=== PATIENT | male | born 1975 | race Caucasian/White ===

== ENCOUNTER 2019-03-07 18:43 | Emergency (ER) | payer SELFPAY ==
[~2019-03-07] VITALS: Ht 157.5 cm; Wt 74.4 kg
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
[2019-03-07] MEDS ORDERED: TETANUS,DIPTH,PERTUSS P/F (BOOSTRIX) 0.5 ML VIAL IM ONE (19:00)
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
--- NOTE | 2019-03-07 19:38 | NUR ---
C-collar cleared by Camron Felix APRN @ this time.
[2019-03-07 19:47] VITALS: BP 139/89
--- NOTE | 2019-03-07 19:47 | NUR ---
@ time of d/c from ED pt voices no further questions or concerns.
== END 2019-03-07 19:50 | disposition home or self-care (01) ==
LOC: ER 18:44
DX: S01.01XA Laceration without foreign body of scalp, initial encounter (principal); R40.2142 Coma scale, eyes open, spontaneous, at arrival to emergency department; R40.2252 Coma scale, best verbal response, oriented, at arrival to emergency department; R40.2362 Coma scale, best motor response, obeys commands, at arrival to emergency department; V43.62XA Car passenger injured in collision with other type car in traffic accident, initial encounter
CPT/HCPCS: 12032; 70450; 72125; 90471; 90715

== ENCOUNTER 2019-03-14 17:20 | Emergency (ER) | payer SELFPAY ==
[~2019-03-14] VITALS: Ht 157.5 cm; Wt 74.4 kg
--- OUTSIDE RECORDS SUMMARY | 2019-03-14 17:26 | XMS REPORT ---
Author Author SHAUN MARTINEZ Organization [facility] Address [address] [place] [address] Care Team Providers Care Residential Aide Name Role Phone SHAUN MARTINEZ Unavailable PROBLEMS Unknown Problems ALLERGIES No Known Allergies ENCOUNTERS Encounter Location Date Diagnosis [facility] [address] [facility] [id number] [address] Dec, Skin lesion of hand L98.9 IMMUNIZATIONS No Known Immunizations SOCIAL HISTORY Never Assessed REASON FOR VISIT Establish Care/ patient states he would like to remove a mole from his rt thumb , having pain everytime he used his hand -- rigoberto winn PLAN OF CARE Activity Details Follow Up call if lesion comes back Reason: VITAL SIGNS Height 5'3" in 2017-12-29 Weight 158.7 lbs 2017-12-29 Temperature 98.9 degrees Fahrenheit 2017-12-29 Heart Rate 70 bpm 2017-12-29 Respiratory Rate 18 2017-12-29 BMI 28.11 kg/m2 2017-12-29 Blood pressure systolic 138 mmHg 2017-12-29 Blood pressure diastolic 86 mmHg 2017-12-29 MEDICATIONS No Known Medications RESULTS No Results PROCEDURES Procedure Date Ordered Result Body Site EXC TR-EXT B9 ROSY 0.5 < CM December 29, 2017 INSTRUCTIONS MEDICATIONS ADMINISTERED No Known Medications
[2019-03-14 17:39] VITALS: BP 127/77
== END 2019-03-14 17:39 | disposition home or self-care (01) ==
LOC: EDUNIT# 17:20 → ER 17:22
DX: S01.01XD Laceration without foreign body of scalp, subsequent encounter (principal); X58.XXXD Exposure to other specified factors, subsequent encounter